=== PATIENT | male | born 1995 ===

== ENCOUNTER 2016-09-25 18:58 | Emergency (ER) | payer SELFPAY ==
[2016-09-25 19:05] VITALS: BP 117/73; TEMP 98; O2SAT 97
[2016-09-25 19:24] VITALS: PULSE 70; RESP 16
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
== END 2016-09-25 19:26 | disposition home or self-care (01) ==
LOC: C.ER 18:58
DX: S39.012A Strain of muscle, fascia and tendon of lower back, initial encounter (principal); V43.52XA Car driver injured in collision with other type car in traffic accident, initial encounter; Y92.410 Unspecified street and highway as the place of occurrence of the external cause